=== PATIENT | male | born 1965 | race American Indian/Alaskan Native ===

== ENCOUNTER 2017-03-30 12:02 | Day surgery (SDC) | payer BC, OTHER ==
[2017-03-30 12:19] VITALS: BMI 31.0
--- NOTE | 2017-03-30 12:35 | ED PDOC ---
Arrival/HPI - General Chief Complaint: Seizure Time Seen by Provider: 03/30/17 12:16 Historian: Patient - History of Present Illness Narrative History of Present Illness (Text): 03/30/17 12:30 A 51 year old male, whose past medical history includes hypertension, was sent into the emergency department by Dr. Rachel for new onset seizures. Patient reports a witnessed seizures 3 days ago and one 2 days ago. Patient notes intermittent headaches for 2 weeks but currently denies any pain. Patient denies any fever, chills, nausea, vomiting, diarrhea, abdominal pain, chest pain , shortness of breath or any other complaints. PMD: Dr. Moore Time/Duration: < week Symptom Course: Unchanged Quality: Other Context: Other Past Medical History - Provider Review Nursing Documentation Reviewed: Yes - Cardiac Hx Cardiac Disorders: Yes Hx Hypertension: Yes - Psychiatric Hx Substance Use: No Family/Social History - Physician Review Nursing Documentation Reviewed: Yes Family/Social History: No Known Family HX Smoking Status: Former Smoker Hx Alcohol Use: Yes Frequency of alcohol use: Socially Hx Substance Use: No Allergies/Home Meds Allergies/Adverse Reactions: Allergies No Known Allergies Allergy (Verified 03/30/17 12:18) Home Medications: Home Meds Medication Instructions Recorded Confirmed Amlodipine/Valsartan/Hcthiazid 1 tab PO DAILY 03/30/17 03/30/17 [Kvsxhejefk-Ikgkcyuxt-Auifyyrcprgmnqrlzlc 10 M] Pitavastatin Calcium [Livalo] 2 mg PO DAILY 03/30/17 03/30/17 Review of Systems - Physician Review All systems were reviewed & negative as marked: Yes - Review of Systems Constitutional: absent: Fevers, Night Sweats Respiratory: absent: SOB Cardiovascular: absent: Chest Pain Gastrointestinal: absent: Abdominal Pain, Diarrhea, Nausea, Vomiting Neurological: Headache, Seizure Physical Exam Vital Signs Reviewed: Yes Vital Signs Temp Pulse Resp BP Pulse Ox 03/30/17 15:15 71 17 132/64 99 03/30/17 15:03 68 18 133/68 98 03/30/17 13:19 75 18 135/71 98 03/30/17 12:18 98.7 F 80 16 138/76 97 Temperature: Afebrile Blood Pressure: Normal Pulse: Regular Respiratory Rate: Normal Appearance: Positive for: Well-Appearing, Non-Toxic, Comfortable Pain Distress: None Mental Status: Positive for: Alert and Oriented X 3 - Systems Exam Head: Present: Atraumatic, Normocephalic Pupils: Present: PERRL Extroacular Muscles: Present: EOMI Conjunctiva: Present: Normal Mouth: Present: Moist Mucous Membranes Neck: Present: Normal Range of Motion Respiratory/Chest: Present: Clear to Auscultation, Good Air Exchange. No: Respiratory Distress, Accessory Muscle Use Cardiovascular: Present: Regular Rate and Rhythm, Normal S1, S2. No: Murmurs Abdomen: Present: Normal Bowel Sounds. No: Tenderness, Distention, Peritoneal Signs Back: Present: Normal Inspection Upper Extremity: Present: Normal Inspection, NORMAL PULSES. No: Cyanosis, Edema Lower Extremity: Present: Normal Inspection, NORMAL PULSES. No: Edema, CALF TENDERNESS Neurological: Present: GCS=15, CN II-XII Intact, Speech Normal, Motor Func Grossly Intact, Normal Sensory Function, Normal Cerebellar Funct, Norm Deep Tendon Reflexes, Memory Normal Skin: Present: Warm, Dry, Normal Color. No: Rashes Psychiatric: Present: Alert, Oriented x 3, Normal Insight, Normal Concentration Medical Decision Making ED Course and Treatment: 03/30/17 13:19 EKG shows NSR at 78 BPM with normal axis, normal intervals, no acute ischemia. Interpreted by me. 03/30/17 15:20 pt being transported for bone marrow biopsy (for eval of myeloproliferative disorder per Dr Barbour). I disc his results w him and rec close follow up w pcp for continued eval of seizures. return prec adv. pt v/u and agrees w plan. - Lab Interpretations Lab Results: 03/30/17 12:20 03/30/17 14:35 Lab Results 03/30/17 14:35: Alcohol, Quantitative 12 H 03/30/17 14:35: Sodium 137, Potassium 3.6, Chloride 100, Carbon Dioxide 27, Anion Gap 14, BUN 8, Creatinine 0.7, Est GFR ( Amer) > 60, Est GFR (Non- Af Amer) > 60, Random Glucose 87, Calcium 9.2, Total Bilirubin 0.7, AST 36, ALT 63 H, Alkaline Phosphatase 60, Total Protein 7.7, Albumin 4.2, Globulin 3.5, Albumin/Globulin Ratio 1.2 03/30/17 13:00: Urine Opiates Screen Negative, Urine Methadone Screen Negative, Ur Barbiturates Screen Negative, Ur Phencyclidine Scrn Negative, Ur Amphetamines Screen Negative, U Benzodiazepines Scrn Negative, U Oth Cocaine Metabols Negative, U Cannabinoids Screen Negative 03/30/17 12:30: Urine Color Yellow, Urine Appearance Clear, Urine pH 6.0, Ur Specific [place] 1.020, Urine Protein Negative, Urine Glucose (UA) Negative, Urine Ketones Negative, Urine Blood Small H, Urine Nitrate Negative, Urine Bilirubin Negative, Urine Urobilinogen 0.2, Ur Leukocyte Esterase Negative, Urine RBC 0 - 2, Urine WBC 0 - 2, Ur Epithelial Cells 1 - 3, Urine Bacteria Few 03/30/17 12:20: PT 11.2, INR 1.04, APTT 28.4 03/30/17 12:20: WBC 13.1 H, RBC 5.14, Hgb 12.8 L, Hct 39.0 L, MCV 75.9 L, MCH 24.9 L, MCHC 32.8, RDW 14.0, Plt Count 261, MPV 11.5 H, Gran % 76.0 H, Lymph % ( Auto) 17.3 L, [place] % (Auto) 5.3, Eos % (Auto) 1.1 L, Baso % (Auto) 0.3, Gran # 9.97 H, Lymph # 2.3, [place] # 0.7 H, Eos # 0.1, Baso # 0.04 - RAD Interpretation Radiology Orders: 03/30/17 12:30 HEAD W/O CONTRAST [CT] Stat 03/30/17 12:31 CHEST ONE VIEW [RAD] Stat 03/30/17 15:00 CT BONE MARROW BX BUNDLE [CT] Stat - Medication Orders Current Medication Orders: Discontinued Medications Fentanyl (Fentanyl) Confirm Administered Dose 200 mcg .ROUTE .STK-MED ONE Stop: 03/30/17 15:05 Heparin Sodium (Porcine) (Heparin Lock Flush) Confirm Administered Dose 300 unit .ROUTE .STK-MED ONE Stop: 03/30/17 15:24 Midazolam HCl (Versed Inj) Confirm Administered Dose 4 mg .ROUTE .STK-MED ONE Stop: 03/30/17 15:05 - Scribe Statement The provider has reviewed the documentation as recorded by the Amanibmary Almeida Provider Scribe Attestation: All medical record entries made by the Scribe were at my direction and personally dictated by me. I have reviewed the chart and agree that the record accurately reflects my personal performance of the history, physical exam, medical decision making, and the department course for this patient. I have also personally directed, reviewed, and agree with the discharge instructions and disposition. Disposition/Present on Arrival - Present on Arrival Any Indicators Present on Arrival: No History of DVT/PE: No History of Uncontrolled Diabetes: No Urinary Catheter: No History of Decub. Ulcer: No History Surgical Site Infection Following: None - Disposition Have Diagnosis and Disposition been Completed?: Yes Diagnosis: Seizures Disposition: HOME/ ROUTINE Disposition Time: 15:32 Patient Problems: Current Active Problems Problem Status Onset Seizures Acute Condition: STABLE Referrals: Kareen Moore MD [Primary Care Provider] - Follow up with primary
[2017-03-30 12:38] LABS: URINE BILIRUBIN NEGATIVE (NEGATIVE); URINE BLOOD SMALL (NEGATIVE); URINE GLUCOSE (UA) NEGATIVE (NEGATIVE); URINE KETONE NEGATIVE (NEGATIVE); URINE LEUKOCYTE ESTERASE NEGATIVE Leu/uL (NEGATIVE); URINE PROTEIN NEGATIVE mg/dL (<30 mg/dL); URINE UROBILINOGEN 0.2 E.U./dL (<1 E.U./dL)
[2017-03-30 12:43] LABS: URINE APPEARANCE CLEAR (CLEAR); URINE COLOR YELLOW (YELLOW)
[2017-03-30 12:53] LABS: ADD MANUAL DIFF? NO
[2017-03-30 12:55] LABS: BASO # 0.04 K/mm3 (0.0-2.0); BASO % 0.3 % (0.0-3.0); EOS # 0.1 (0.0-0.7); EOS % 1.1 % (1.5-5.0); GRAN # 9.97 (1.4-6.5); LYMPH # 2.3 (1.2-3.4); LYMPH % 17.3 % (22.0-35.0); MEAN CELL VOLUME 75.9 fL (80.0-105.0); MEAN CORPUSCULAR HEMOGLOBIN 24.9 pg (25.0-35.0); MEAN CORPUSCULAR HGB CONC 32.8 g/dl (31.0-37.0); MEAN PLATELET VOLUME 11.5 fl (7.0-11.0); MONO # 0.7 (0.1-0.6); MONO % 5.3 % (1.0-6.0); PLATELET COUNT 261 10^3/uL (120.0-450.0); WHITE BLOOD COUNT 13.1 10^3/ul (4.5-11.0)
[2017-03-30 13:10] LABS: INR 1.04 (0.93-1.08); PARTIAL THROMBOPLASTIN TIME 28.4 Seconds (23.7-30.8)
[2017-03-30 13:13] LABS: URINE BACTERIA FEW (NEG); URINE RBC 0 - 2 /hpf (0-2); URINE WBC 0 - 2 /hpf (0-6)
--- NOTE | 2017-03-30 13:37 | CT ---
PROCEDURE: CT HEAD WITHOUT CONTRAST. HISTORY: seizure, headaches COMPARISON: None available. TECHNIQUE: Axial computed tomography images were obtained through the head/brain without intravenous contrast. Radiation dose: Total exam DLP = 758.41 mGy-cm. This CT exam was performed using one or more of the following dose reduction techniques: Automated exposure control, adjustment of the mA and/or kV according to patient size, and/or use of iterative reconstruction technique. FINDINGS: HEMORRHAGE: No intracranial hemorrhage. BRAIN: No mass effect or edema. No atrophy or chronic microvascular ischemic changes. VENTRICLES: Unremarkable. No hydrocephalus. CALVARIUM: Unremarkable. PARANASAL SINUSES: There is a retention cyst/ polyp in the inferior right maxillary antrum. Minimal chronic bilateral maxillary sinusitis is noted. MASTOID AIR CELLS: Unremarkable as visualized. No inflammatory changes. OTHER FINDINGS: None. IMPRESSION: No intracranial mass, hemorrhage or evidence of acute infarct. Minimal bilateral chronic maxillary sinusitis with retention cyst/ polyp in right maxillary antrum.
[2017-03-30 14:53] LABS: ALB/GLOB RATIO 1.2 (1.1-1.8); ALKALINE PHOSPHATASE 60 U/L (38-133); ALT/SGPT 63 U/L (7-56); AST/SGOT 36 U/L (15-59); BILIRUBIN,TOTAL 0.7 mg/dL (0.2-1.3); BLOOD UREA NITROGEN 8 mg/dL (7-21); CALCIUM 9.2 mg/dL (8.4-10.5); CARBON DIOXIDE 27 mmol/L (21-33); CHLORIDE 100 mmol/L (98-107); GFR AFRICAN-AMERICAN > 60; GLUCOSE,RANDOM 87 mg/dL (70-110); POTASSIUM 3.6 mmol/L (3.6-5.0); SODIUM 137 mmol/L (132-148); TOTAL PROTEIN 7.7 g/dL (5.8-8.3)
[2017-03-30] MEDS ORDERED: Midazolam 2 MG/2 ML VIAL ONE (15:04)
--- NOTE | 2017-03-30 16:49 | RAD ---
PROCEDURE: CHEST RADIOGRAPH, 1 VIEW HISTORY: seizures COMPARISON: Dense MRI ligament FINDINGS: LUNGS: Clear. PLEURA: No pneumothorax or pleural fluid seen. CARDIOVASCULAR: Normal. OSSEOUS STRUCTURES: No significant abnormalities. VISUALIZED UPPER ABDOMEN: Normal. OTHER FINDINGS: None. IMPRESSION: No acute consolidation.
[2017-03-30] MEDS ORDERED: Oxycodone/Acetaminophen 5/325 mg Tab PO PRN (16:57)
[2017-03-30] MEDS ORDERED: Sodium Chloride 0.45% 1,000 ML IV SCH (17:00)
--- NOTE | 2017-03-30 17:42 | CARD ---
APPROVED REPORT EKG Measurement Heart [id number] ID [id number] <Conclusion> Normal sinus rhythm Minimal voltage criteria for LVH, may be normal variant Borderline ECG
[2017-03-30 18:05] VITALS: BP 118/61; PULSE 76; RESP 20; TEMP 98.2; O2SAT 98
--- NOTE | 2017-03-30 19:21 | CT ---
PROCEDURE: CT guided pelvic bone marrow aspiration and biopsy HISTORY: Leukocytosis. Evaluate for myeloproliferative disorder PHYSICIAN(S): Pop Montgomery MD. TECHNIQUE: The relative risks and indications of the procedure were explained to the patient and consent obtained. The patient was placed prone on the CT scanner and preliminary images through the pelvis obtained. Conscious sedation and monitoring were provided throughout the procedure by a nurse. The left posterior superior iliac spine was isolated in the area prepped and draped in usual sterile fashion. 1 percent xylocaine was used to anesthetize the skin soft tissues and periosteum. A bone marrow aspiration biopsy needle was advanced to the cortex. The mechanical drill was used to penetrate the cortex. A bone marrow aspiration was performed. Next a core biopsy was obtained with the mechanical drill. The slides and samples were processed by Dr. Hinds IMPRESSION: 1. CT-guided pelvic bone marrow aspiration and biopsy
== END 2017-03-30 17:55 | disposition home or self-care (01) ==
LOC: ED 12:02 → SDS 15:35
PROVIDERS: ATTEND Radiology Vascular & Interventional Radiology
DX: R56.9 Unspecified convulsions (principal); D72.829 Elevated white blood cell count, unspecified; I10 Essential (primary) hypertension
CPT/HCPCS: 38221; 70450; 71010; 80053; 81001; 82948; 85025; 85610; 85730; 93005; 99285; G0480 ×9; J2250; J3010